=== PATIENT | female | born 1930 | race Two or more races ===

== ENCOUNTER 2016-07-24 20:03 | Inpatient (IN) | payer MEDICARE, OTHER ==
[~2016-07-24] VITALS: Ht 172.7 cm; Wt 83.0 kg
[2016-07-24 21:06] LABS: Basophils # (auto) 0 uL; Basophils % (auto) 0.1 % (0.0-2.0); Eosinophils # (auto) 0.2 uL; Eosinophils % (auto) 2.1 % (0.0-7.0); Hematocrit 33.8 % (36.0-46.0); Hemoglobin 11.1 g/dL (12.2-16.2); Lymphocytes % (auto) 11.4 % (10.0-50.0); Mean Corpuscular Hemoglobin 27.2 pg (28.0-32.0); Mean Corpuscular Hgb Conc. 32.8 g/dL (32.0-36.0); Mean Platelet Volume 7.8 fL (7.4-10.4); Neutrophils # (auto) 6.7 uL; Neutrophils % (auto) 75.4 % (37.0-80.0); Platelet Count (auto) 264 10^3/uL (140-450); Red Cell Distribution Width 14.4 % (11.6-16.0); White Blood Cell 8.9 10^3/uL (4.4-10.8)
[2016-07-24 21:21] LABS: Albumin 2.9 g/dL (3.4-5.0); Bilirubin, Total 0.4 mg/dL (0.2-1.0); Calcium 8.5 mg/dL (8.5-10.1); Magnesium 1.9 mg/dL (1.6-2.6); Potassium 3.9 mmol/L (3.5-5.1); Total Protein 6.5 g/dL (6.4-8.2)
[2016-07-24 21:26] LABS: B-Type Natriuretic Peptide 97.9 pg/mL (0-100)
[2016-07-24 21:30] LABS: INR 1.11 (0.9-1.15); Partial Thromboplastin Time 27.3 sec (22.64-33.71); Prothrombin Time 11.4 sec (9.37-12.3)
[2016-07-24 21:32] LABS: Temperature: 22.5 C (20.0-25.0)
[2016-07-24 23:06] LABS: Urine Bilirubin Negative (Negative); Urine Blood Negative /uL (Negative); Urine Color Yellow (Yellow); Urine Glucose Normal (Normal); Urine Hyaline Cast MANY /lpf (0 - 2); Urine Ketone Negative (Negative); Urine Mucus FEW (None Seen); Urine Nitrite Negative (Negative); Urine RBC 13 /hpf (0 - 4); Urine Squamous Epithelial Cell MOD /hpf (<5); Urine pH 5.5 (5.0-8.0)
[2016-07-25] MEDS ORDERED: cefTRIAXone 1GM/50ML D5W 50 ML IV ONE (09:45)
[2016-07-25] MEDS ORDERED: SODIUM CHLORIDE 0.9% 1,000 ML IV ONE (09:45)
[2016-07-25] MEDS ORDERED: ALBUTEROL SULF 2.5 MG/0.5ML(0.5%) NEB SOLN NEB ONE (10:30)
[2016-07-25] MEDS ORDERED: IPRATROPIUM BROM 0.5 MG/2.5ML INH SOL NEB ONE (10:30)
[2016-07-25] MEDS ORDERED: methylPREDNISolone SOD SUCC 125 MG/2 ML VL IV ONE (10:30)
[2016-07-25 10:58] LABS: B-Type Natriuretic Peptide 46.21 pg/mL (0-100)
[2016-07-25] MEDS ORDERED: NITROGLYCERIN 0.4 MG SL TAB SL PRN (12:00)
[2016-07-25] MEDS ORDERED: LACTULOSE 20Gm/30ML SOLN PO PRN (12:00)
[2016-07-25] MEDS ORDERED: DEXTROSE (50%) 50ML SYRG IV PRN (12:00)
[2016-07-25] MEDS ORDERED: FUROSEMIDE 20 MG/2 ML VIAL IV ONE (12:00)
[2016-07-25] MEDS ORDERED: ONDANSETRON HCL 4 MG/2 ML VIAL IV PRN (12:00)
[2016-07-25] MEDS ORDERED: MORPHINE SULF INJ 2 MG/ML SYRINGE 1ML IV PRN ×2 (12:00)
[2016-07-25] MEDS ORDERED: LORazepam 0.5 MG TAB PO PRN (12:00)
[2016-07-25] MEDS ORDERED: TEMAZEPAM 15 MG CAP PO PRN (12:00)
[2016-07-25] MEDS ORDERED: IOHEXOL 350 MG/ML 100ML IJ ONE (12:12)
[2016-07-25] MEDS: ENOXAPARIN SOD 40 MG/0.4 ML SYRINGE SC SCH (13:25)
[2016-07-25] MEDS: ENALAPRIL MALEATE 2.5 MG TAB PO SCH (13:25)
[2016-07-25] MEDS: NITROGLYCERIN 0.2MG/HR TOPICAL PATCH TD SCH (13:25)
[2016-07-25] MEDS: ASPirin 81 mg TAB PO SCH (13:25)
[2016-07-25] MEDS: SODIUM CHLOR 0.9% PF (SALINE LOCK) 10ML VIAL IV SCH ×2 (13:26→21:43)
[2016-07-25] MEDS ORDERED: OSELTAMIVIR 75 MG CAP PO ONE (16:00)
[2016-07-25] MEDS ORDERED: ALBUTEROL SULF 2.5 MG/0.5ML(0.5%) NEB SOLN NEB PRN (16:00)
[2016-07-25] MEDS: methylPREDNISolone SOD SUCC 40 MG/ML VL IV SCH (16:51)
[2016-07-25] MEDS: ACCU-CHEK COMFORT CURVE STRIP VI SCH ×2 (17:00→21:43)
[2016-07-25] MEDS: InsuLIN REG 1unit/0.01ml Soln (100units/ml) SC SCH ×2 (17:00→23:42)
[2016-07-25] MEDS: ALBUTEROL SULF 2.5 MG/0.5ML(0.5%) NEB SOLN NEB SCH (18:00)
[2016-07-25] MEDS: IPRATROPIUM BROM 0.5 MG/2.5ML INH SOL NEB SCH (18:00)
[2016-07-25 20:02] VITALS: BP 143/45
[2016-07-25] MEDS: CARVEDILOL 3.125 MG TAB PO SCH (21:43)
[2016-07-25 22:00] VITALS: BP 123/50
[2016-07-25] MEDS ORDERED: PRAV20TA3 PO (22:20)
[2016-07-25] MEDS ORDERED: CARV12.516 OR (22:20)
[2016-07-25] MEDS ORDERED: CLOP75TA41 PO (22:20)
[2016-07-25] MEDS ORDERED: METF-314 PO (22:20)
[2016-07-25] MEDS ORDERED: AMLO10TA2 PO (22:20)
[2016-07-25] MEDS ORDERED: HYDR25TA4 PO (22:20)
[2016-07-25] MEDS ORDERED: CARV12.544 PO (22:20)
[2016-07-25] MEDS ORDERED: ASPI325T4 PO (22:20)
[2016-07-25] MEDS ORDERED: PANT40TA2 PO (22:20)
[2016-07-26] MEDS: IPRATROPIUM BROM 0.5 MG/2.5ML INH SOL NEB SCH ×5 (00:14→23:57)
[2016-07-26] MEDS: ALBUTEROL SULF 2.5 MG/0.5ML(0.5%) NEB SOLN NEB SCH ×5 (00:14→23:57)
[2016-07-26] MEDS: methylPREDNISolone SOD SUCC 40 MG/ML VL IV SCH ×3 (04:01→16:34)
[2016-07-26 04:51] VITALS: BP 139/71
[2016-07-26] MEDS: SODIUM CHLOR 0.9% PF (SALINE LOCK) 10ML VIAL IV SCH ×3 (05:36→21:19)
[2016-07-26] MEDS: ACCU-CHEK COMFORT CURVE STRIP VI SCH ×4 (05:42→21:19)
[2016-07-26] MEDS: InsuLIN REG 1unit/0.01ml Soln (100units/ml) SC SCH ×4 (05:52→21:21)
[2016-07-26] MEDS ORDERED: OSELTAMIVIR 75 MG CAP PO SCH (06:00)
[2016-07-26 06:08] LABS: Basophils # (auto) 0 uL; Basophils % (auto) 0.2 % (0.0-2.0); Eosinophils # (auto) 0 uL; Hematocrit 34.4 % (36.0-46.0); Hemoglobin 11.1 g/dL (12.2-16.2); Lymphocytes # (auto) 0.7 uL; Lymphocytes % (auto) 12.3 % (10.0-50.0); Mean Corpuscular Hemoglobin 27.1 pg (28.0-32.0); Mean Corpuscular Hgb Conc. 32.4 g/dL (32.0-36.0); Mean Corpuscular Volume 83.7 fL (80.0-100.0); Mean Platelet Volume 7.9 fL (7.4-10.4); Monocytes # (auto) 0.3 uL; Monocytes % (auto) 6.1 % (0.0-12.0); Neutrophils # (auto) 4.6 uL; Neutrophils % (auto) 81.4 % (37.0-80.0); Platelet Count (auto) 330 10^3/uL (140-450); Red Cell Distribution Width 14.4 % (11.6-16.0); White Blood Cell 5.7 10^3/uL (4.4-10.8)
[2016-07-26 06:34] LABS: B-Type Natriuretic Peptide 47.29 pg/mL (0-100)
[2016-07-26 06:41] LABS: Temperature: 21.2 C (20.0-25.0)
[2016-07-26 06:44] LABS: Albumin 2.9 g/dL (3.4-5.0); BUN/Creatinine Ratio 36.6; Bilirubin, Total 0.2 mg/dL (0.2-1.0); Calcium 8.9 mg/dL (8.5-10.1); Potassium 3.5 mmol/L (3.5-5.1); Total Protein 6.7 g/dL (6.4-8.2)
[2016-07-26 08:00] VITALS: BP 142/58
[2016-07-26] MEDS: cefTRIAXone 1GM/50ML D5W 50 ML IV SCH (09:02)
[2016-07-26] MEDS: CARVEDILOL 3.125 MG TAB PO SCH ×2 (09:51→21:22)
[2016-07-26] MEDS: ASPirin 81 mg TAB PO SCH (09:51)
[2016-07-26] MEDS: ENOXAPARIN SOD 40 MG/0.4 ML SYRINGE SC SCH (09:51)
[2016-07-26] MEDS: NITROGLYCERIN 0.2MG/HR TOPICAL PATCH TD SCH (09:52)
[2016-07-26] MEDS: ENALAPRIL MALEATE 2.5 MG TAB PO SCH (09:52)
[2016-07-26] MEDS ORDERED: ENOXAPARIN SOD 40 MG/0.4 ML SYRINGE SC SCH (10:00)
[2016-07-26 13:00] VITALS: BP 134/63
[2016-07-26 16:50] VITALS: BP 152/56
[2016-07-26 22:00] VITALS: BP 148/67
[2016-07-27 02:40] VITALS: BP 111/51
[2016-07-27] MEDS: methylPREDNISolone SOD SUCC 40 MG/ML VL IV SCH (04:35)
[2016-07-27 05:00] VITALS: BP 143/63
[2016-07-27] MEDS: SODIUM CHLOR 0.9% PF (SALINE LOCK) 10ML VIAL IV SCH ×2 (05:37→14:00)
[2016-07-27] MEDS: ACCU-CHEK COMFORT CURVE STRIP VI SCH ×2 (05:37→11:30)
[2016-07-27] MEDS: InsuLIN REG 1unit/0.01ml Soln (100units/ml) SC SCH ×2 (06:31→11:30)
[2016-07-27] MEDS: ALBUTEROL SULF 2.5 MG/0.5ML(0.5%) NEB SOLN NEB SCH ×2 (06:41→11:37)
[2016-07-27] MEDS: IPRATROPIUM BROM 0.5 MG/2.5ML INH SOL NEB SCH ×2 (06:41→11:38)
[2016-07-27 08:53] VITALS: BP 138/61
[2016-07-27] MEDS: cefTRIAXone 1GM/50ML D5W 50 ML IV SCH (10:43)
[2016-07-27] MEDS: NITROGLYCERIN 0.2MG/HR TOPICAL PATCH TD SCH (10:44)
[2016-07-27] MEDS: ASPirin 81 mg TAB PO SCH (10:44)
[2016-07-27] MEDS: CARVEDILOL 3.125 MG TAB PO SCH (10:45)
[2016-07-27] MEDS: ENALAPRIL MALEATE 2.5 MG TAB PO SCH (10:46)
[2016-07-27] MEDS: ENOXAPARIN SOD 40 MG/0.4 ML SYRINGE SC SCH (10:50)
[2016-07-27 13:39] VITALS: BP 132/51
[2016-07-27 16:32] VITALS: BP 138/61
[2016-07-27 17:02] VITALS: BP 135/62
== END 2016-07-27 18:00 | disposition home or self-care (01) | DRG 291 ==
LOC: ER 20:04 → TELE 20:05 → TELE-WESTW 07-25 18:24
PROVIDERS: ADMIT Internal Medicine; ATTEND Internal Medicine
DX: I11.0 Hypertensive heart disease with heart failure (principal); J18.9 Pneumonia, unspecified organism; J44.0 Chronic obstructive pulmonary disease with (acute) lower respiratory infection; N39.0 Urinary tract infection, site not specified; J44.1 Chronic obstructive pulmonary disease with (acute) exacerbation; I50.43 Acute on chronic combined systolic (congestive) and diastolic (congestive) heart failure; I10 Essential (primary) hypertension; E11.65 Type 2 diabetes mellitus with hyperglycemia; D64.9 Anemia, unspecified; Z90.49 Acquired absence of other specified parts of digestive tract; Z88.5 Allergy status to narcotic agent; Z88.0 Allergy status to penicillin; Z88.8 Allergy status to other drugs, medicaments and biological substances
CPT/HCPCS: 36415; 71010; 71275; 80053; 80061; 81001; 82550; 82962; 83036; 83735; 83880; 84443; 84484; 85025; 85049; 85379; 85610; 85730; 87040; 87086; 87400; 93005; 93306; 94640; 96365; 96372; 96375; J0696; J1815